=== PATIENT | male | born 1965 | race Caucasian/White ===

== ENCOUNTER 2021-07-24 15:04 | Emergency (ER) | payer SELFPAY ==
[~2021-07-24] VITALS: Ht 180.3 cm; Wt 73.0 kg
[2021-07-24] MEDS ORDERED: HYDROCODONE/ACETAMINOPHEN 5/325MG TABLET PO ONE (15:45)
[2021-07-24] MEDS ORDERED: BACITRACIN ZINC OINT UDPKT TOP ONE (16:30)
[2021-07-24] MEDS ORDERED: NAPR-681 MT (17:17)
[2021-07-24 17:48] VITALS: BP 125/79
== END 2021-07-24 17:49 | disposition home or self-care (01) ==
LOC: ER 15:04
DX: S80.211A Abrasion, right knee, initial encounter (principal); M25.532 Pain in left wrist; M25.521 Pain in right elbow; M54.59 Other low back pain; M25.551 Pain in right hip; V17.0XXA Pedal cycle driver injured in collision with fixed or stationary object in nontraffic accident, initial encounter; Y93.55 Activity, bike riding; Y92.89 Other specified places as the place of occurrence of the external cause; Y99.0 Civilian activity done for income or pay
CPT/HCPCS: 73080; 73110; 99284